=== PATIENT | female | born 1995 | race Caucasian/White ===

== ENCOUNTER 2017-11-24 11:37 | Emergency (ER) | payer MEDICAID, OTHER ==
[~2017-11-24] VITALS: Ht 162.6 cm; Wt 69.1 kg
[2017-11-24] MEDS ORDERED: KETOROLAC TROMETHAMINE 10 MG TABLET PO ONE (12:15)
[2017-11-24] MEDS ORDERED: SILVER SULFADIAZINE 1% 25 GM CREAM TP ONE (12:15)
[2017-11-24 13:35] VITALS: BP 125/80
== END 2017-11-24 13:37 | disposition home or self-care (01) ==
LOC: EMS 11:37
DX: T25.291A Burn of second degree of multiple sites of right ankle and foot, initial encounter (principal); T25.292A Burn of second degree of multiple sites of left ankle and foot, initial encounter; X12.XXXA Contact with other hot fluids, initial encounter; Y93.89 Activity, other specified; Y92.89 Other specified places as the place of occurrence of the external cause; Y99.8 Other external cause status
CPT/HCPCS: 16020; 99284